=== PATIENT | male | born 1945 | race Caucasian/White ===

== ENCOUNTER 2017-03-30 10:07 | Day surgery (SDC) | payer OTHER ==
[~2017-03-30] VITALS: Ht 188 cm; Wt 65.9 kg
[~2017-03-30 10:07] MED LIST: DUONEB 2.5-0.5 M3 ML IH; ENDOCET 5-3251 EACH PO; ENSURE PLUS237 ML PO; LAMISIL AT12 GM TP; LAMISIL250 MG PO; NORCO 5/3251 TABLET PO; PROAIR HFA8.5 GM IH; PROTONIX40 MG PO; SPIRIVA1 INHALATI IH; SYMBICORT60 INHALAT IH; TYLENOL REGULA325 MG PO; VOLTAREN75 MG PO; ZYRTEC10 M3 PO
[2017-03-30 10:47] VITALS: BP 136/74
[2017-03-30] MEDS ORDERED: NORCO 5/3251 TABLET PO (13:53)
[2017-03-30 14:36] VITALS: BP 113/71
[2017-03-30 15:50] VITALS: BP 116/59
== END 2017-03-30 16:15 | disposition home or self-care (01) ==
LOC: SDC 10:07
PROC: 0YU60JZ Supplement Left Inguinal Region with Synthetic Substitute, Open Approach (ICD-10-PCS; principal; 2017-03-30)
DX: K40.90 Unilateral inguinal hernia, without obstruction or gangrene, not specified as recurrent (principal); C15.9 Malignant neoplasm of esophagus, unspecified; Z85.51 Personal history of malignant neoplasm of bladder; J44.9 Chronic obstructive pulmonary disease, unspecified; K21.0 Gastro-esophageal reflux disease with esophagitis; Z92.3 Personal history of irradiation; Z92.21 Personal history of antineoplastic chemotherapy; Z87.891 Personal history of nicotine dependence
CPT/HCPCS: C1781; J0690; J1885; J2250; J2405; J3010; S0020